=== PATIENT | male | born 1960 | race Caucasian/White ===

== ENCOUNTER 2018-03-20 19:13 | Outpatient (REF) | payer OTHER, SELFPAY ==
[2018-03-20 20:48] LABS: COMMENT (LAB VIEW ONLY) 27.34 mg/dL; Microalb ug/mg Crea 123.6 ug/mg Cr
== END 2018-03-20 19:33 ==
LOC: NCHCN 19:13
PROVIDERS: PCP Family Medicine; Visit Provider Family Medicine
DX: E11.21 Type 2 diabetes mellitus with diabetic nephropathy (principal)
CPT/HCPCS: 82043; 82570

== ENCOUNTER 2018-08-20 07:53 | Outpatient (REF) | payer OTHER, SELFPAY ==
[2018-08-20 13:22] LABS: HCT 41.1 % (40.0-50.0); Mean Corp. HGB Concentration 34.1 g/dL (32.0-36.0); Mean Corpuscular Hemoglobin 37.9 pg (27.0-33.0); Mean Corpuscular Volume 111.4 fL (80-95); Mean Platelet Volume 9.7 fL (8.0-11.0); Platelet Count 245 x1000/uL (130-400); RBC 3.69 m/cumm (4.50-6.00); RBC Distribution Width 11.8 % (11.8-14.1)
[2018-08-20 13:41] LABS: Anion Gap 12.9 mmol/L (3-11); BUN 17 mg/dL (7-18); CO2 24.1 mmol/L (21.0-32.0); CREATININE 0.82 mg/dL (0.70-1.30); Calcium 9.1 mg/dL (8.5-10.1); Chloride 100 mmol/L (98-107); Glucose 179 mg/dL (70-100); Potassium 4.6 mmol/L (3.5-5.1); Sodium 137 mmol/L (136-145)
== END 2018-08-20 08:13 ==
LOC: NCHCN 07:53
PROVIDERS: PCP Family Medicine; Visit Provider Family Medicine
DX: I10 Essential (primary) hypertension (principal); D53.9 Nutritional anemia, unspecified
CPT/HCPCS: 80048; 85027

== ENCOUNTER 2018-10-29 18:24 | Outpatient (REF) | payer OTHER, SELFPAY ==
--- NOTE | 2018-10-29 11:15 | SKI_PTH ---
PATIENT: Clive Zuleta LOC: [facility] U#:[id number] AGE/SX: 58/M ROOM: RE10/29/[address]: [place] : 1960 BED: DIS: 10/29/2018 SPEC #: [id number] RECD: 10/29/18 18:29 STATUS: DEION APPLE #: [id number] ABDON: 10/29/18 11:[address]: Timbo eBach DEPT: Surgical Specimen RECD BY: Ashley Theodore Tissues: 1 - SKIN BIOPSY(SHAVE/PUNCH) Procedures: SKIN LEVEL 4 Comments: [id number]
== END 2018-10-29 18:44 ==
LOC: NCHCN 18:24
PROVIDERS: PCP Family Medicine; Visit Provider Family Medicine
DX: C44.321 Squamous cell carcinoma of skin of nose (principal)
CPT/HCPCS: 88305

== ENCOUNTER 2018-11-19 12:28 | Outpatient (REF) | payer OTHER, SELFPAY ==
[2018-11-19 13:28] LABS: HCT 45.3 % (40.0-50.0); HGB 15.6 g/dL (13.5-17.5); Mean Corp. HGB Concentration 34.4 g/dL (32.0-36.0); Mean Corpuscular Hemoglobin 37.4 pg (27.0-33.0); Mean Corpuscular Volume 108.6 fL (80-95); Mean Platelet Volume 9.6 fL (8.0-11.0); Platelet Count 242 x1000/uL (130-400); RBC 4.17 m/cumm (4.50-6.00); RBC Distribution Width 11.2 % (11.8-14.1); White Blood Cell Count 9.88 k/cumm (4.4-10.8)
[2018-11-19 13:35] LABS: Anion Gap 13.1 mmol/L (3-11); BUN 18 mg/dL (7-18); CO2 23.9 mmol/L (21.0-32.0); CREATININE 0.96 mg/dL (0.70-1.30); Calcium 8.9 mg/dL (8.5-10.1); Chloride 98 mmol/L (98-107); Glucose 280 mg/dL (70-100); Potassium 4.4 mmol/L (3.5-5.1); Sodium 135 mmol/L (136-145)
== END 2018-11-19 12:48 ==
LOC: NCHCN 12:28
PROVIDERS: PCP Family Medicine; Visit Provider Family Medicine
DX: I10 Essential (primary) hypertension (principal); D53.9 Nutritional anemia, unspecified
CPT/HCPCS: 80048; 85027

== ENCOUNTER 2019-01-28 11:01 | Outpatient (REF) | payer OTHER, SELFPAY ==
[2019-01-28 13:36] LABS: BUN 24 mg/dL (7-18); CREATININE 0.96 mg/dL (0.70-1.30); Calcium 9.6 mg/dL (8.5-10.1); Chloride 101 mmol/L (98-107); Glucose 112 mg/dL (70-100); Sodium 137 mmol/L (136-145)
== END 2019-01-28 11:21 ==
LOC: NCHCN 11:01
PROVIDERS: PCP Family Medicine; Visit Provider Family Medicine
DX: I10 Essential (primary) hypertension (principal)
CPT/HCPCS: 80048

== ENCOUNTER 2020-02-04 14:43 | Outpatient (REF) | payer OTHER, SELFPAY ==
[2020-02-04 19:31] LABS: Abs Immature Grans 0.03 10^3/uL (0.0-0.06); Absolute Basophil Count 0.05 10^3/uL (0.0-0.2); Absolute Eosinophil Count 0.09 10^3/uL (0.0-0.7); Absolute Lymphocyte Count 1.83 10^3/uL (1.2-3.4); Absolute Neutrophil Count 5.57 10^3/uL (1.2-6.7); Basophils % 0.6; Eosinophils % 1.1; HCT 38.8 % (40.0-50.0); HGB 13.1 g/dL (13.5-17.5); Immature Grans % 0.4; Lymphocytes % 21.6; MCH 38.9 pg (27.0-33.0); MCHC 33.8 % (32.0-36.0); MCV 115.1 fL (80-95); MPV 9.1 fL (8.0-11.0); Monocytes % 10.6; Neutrophils % 65.7; Nucleated RBC 0 %; Platelet Count 277 10^3/uL (130-400); RBC 3.37 10^6/uL (4.36-5.78); RDW 11.9 % (11.8-14.1); RDW-SD 51.6 fL; WBC 8.47 10^3/uL (4.4-10.8)
[2020-02-04 19:53] LABS: ALT 26 U/L (16-63); AST 27 U/L (15-37); Alkaline Phosphatase 73 U/L (46-116); Anion Gap 12.5 mmol/L (3-11); BUN 28 mg/dL (7-18); Bilirubin, Total 0.3 mg/dL (0.2-1.0); C-Reactive Protein 0.52 mg/dL (0.0-0.3); CO2 22.5 mmol/L (21.0-32.0); CREATININE 0.98 mg/dL (0.70-1.30); Calcium 9.5 mg/dL (8.5-10.1); Chloride 100 mmol/L (98-107); Glucose 99 mg/dL (74-106); Potassium 4.6 mmol/L (3.5-5.1); Sodium 135 mmol/L (136-145); Total Protein 7.4 g/dL (6.4-8.2)
[2020-02-04 19:54] LABS: Macrocytosis 1+; Polychromasia Present
== END 2020-02-04 15:03 ==
LOC: NCHCN 14:43
PROVIDERS: PCP Family Medicine; Visit Provider Family Medicine
DX: M79.672 Pain in left foot (principal)
CPT/HCPCS: 80053; 85025; 86140

== ENCOUNTER 2021-01-19 17:06 | Outpatient (REF) | payer BC, SELFPAY ==
[2021-01-19 20:04] LABS: ALT 24 U/L (16-63); AST 20 U/L (15-37); Albumin 3.7 g/dL (3.4-5.0); Alkaline Phosphatase 88 U/L (46-116); Anion Gap 10.3 mmol/L (3-11); BUN 26 mg/dL (7-18); Bilirubin, Total 0.2 mg/dL (0.2-1.0); CO2 24.7 mmol/L (21.0-32.0); CREATININE 1.1 mg/dL (0.70-1.30); Chloride 104 mmol/L (98-107); Glucose 97 mg/dL (74-106); Potassium 4.3 mmol/L (3.5-5.1); Sodium 139 mmol/L (136-145); Total Protein 6.9 g/dL (6.4-8.2)
[2021-01-21 10:52] LABS: HIV-1/2 Ag & Ab Screen Negative (Negative)
[2021-01-21 11:09] LABS: Hepatitis C Ab w Rflx HCV PCR Negative (Negative)
== END 2021-01-19 17:07 | disposition home or self-care (01) ==
LOC: NCHCN 17:06
PROVIDERS: PCP Family Medicine; Visit Provider Family Medicine
DX: Z00.00 Encounter for general adult medical examination without abnormal findings (principal); F10.99 Alcohol use, unspecified with unspecified alcohol-induced disorder
CPT/HCPCS: 80053; 86803; 87389

== ENCOUNTER 2021-12-28 09:35 | Outpatient (REF) | payer BC, SELFPAY ==
[2021-12-28 16:10] LABS: Abs Immature Grans 0.05 10^3/uL (0.0-0.06); Absolute Basophil Count 0.04 10^3/uL (0.0-0.2); Absolute Eosinophil Count 0.06 10^3/uL (0.0-0.7); Absolute Lymphocyte Count 1.72 10^3/uL (1.2-3.4); Absolute Monocyte Count 0.82 10^3/uL (0.1-0.8); Absolute Neutrophil Count 6.51 10^3/uL (1.2-6.7); Basophils % 0.4; Eosinophils % 0.7; HCT 39.6 % (40.0-50.0); HGB 13.5 g/dL (13.5-17.5); Immature Grans % 0.5; Lymphocytes % 18.7; MCH 38.7 pg (27.0-33.0); MCHC 34.1 % (32.0-36.0); MCV 114 fL (80-95); MPV 9.5 fL (8.0-11.0); Monocytes % 8.9; Neutrophils % 70.8; Platelet Count 241 10^3/uL (130-400); RBC 3.49 10^6/uL (4.36-5.78); RDW 11.6 % (11.8-14.1); RDW-SD 48.6 fL
[2021-12-28 16:42] LABS: ESR 32 mm/hr (0-20)
[2021-12-28 16:46] LABS: ALT 24 U/L (16-63); AST 25 U/L (15-37); Albumin 3.6 g/dL (3.4-5.0); Alkaline Phosphatase 101 U/L (46-116); Anion Gap 7.9 mmol/L (3-11); BUN 17 mg/dL (7-18); Bilirubin, Total 0.3 mg/dL (0.2-1.0); CO2 26.1 mmol/L (21.0-32.0); CREATININE 1.1 mg/dL (0.70-1.30); Calcium 9.9 mg/dL (8.5-10.1); Chloride 101 mmol/L (98-107); Estimated GFR 76.85 (mL/min/1.73m2); Glucose 204 mg/dL (74-106); Potassium 4.5 mmol/L (3.5-5.1); Sodium 135 mmol/L (136-145); Total Protein 7.8 g/dL (6.4-8.2); Vitamin B12 600 pg/mL (193-986)
[2021-12-28 16:54] LABS: Folate > 20.0 ng/mL (8.6-20.0)
== END 2021-12-28 09:36 | disposition home or self-care (01) ==
LOC: NCHCN 09:35
PROVIDERS: PCP Family Medicine; Visit Provider Family Medicine
DX: D53.9 Nutritional anemia, unspecified (principal); L97.519 Non-pressure chronic ulcer of other part of right foot with unspecified severity
CPT/HCPCS: 80053; 85652; 82607; 82746; 85025

== ENCOUNTER 2022-05-10 18:59 | Outpatient (REF) | payer BC, SELFPAY ==
[2022-05-10 19:51] LABS: Abs Immature Grans 0.02 10^3/uL (0.0-0.06); Absolute Basophil Count 0.08 10^3/uL (0.0-0.2); Absolute Eosinophil Count 0.19 10^3/uL (0.0-0.7); Absolute Lymphocyte Count 1.98 10^3/uL (1.2-3.4); Absolute Monocyte Count 0.98 10^3/uL (0.1-0.8); Absolute Neutrophil Count 6.84 10^3/uL (1.2-6.7); Basophils % 0.8; Eosinophils % 1.9; HCT 41.1 % (40.0-50.0); HGB 13.6 g/dL (13.5-17.5); Immature Grans % 0.2; Lymphocytes % 19.6; MCH 37.6 pg (27.0-33.0); MCHC 33.1 % (32.0-36.0); MCV 114 fL (80-95); Monocytes % 9.7; Neutrophils % 67.8; Platelet Count 250 10^3/uL (130-400); RBC 3.62 10^6/uL (4.36-5.78); RDW 11.5 % (11.8-14.1); RDW-SD 48.1 fL; WBC 10.09 10^3/uL (4.4-10.8)
[2022-05-10 19:54] LABS: ESR 37 mm/hr (0-20)
[2022-05-10 20:22] LABS: ALT 18 U/L (16-63); AST 20 U/L (15-37); Albumin 3.9 g/dL (3.4-5.0); Alkaline Phosphatase 113 U/L (46-116); Anion Gap 9.2 mmol/L (3-11); BUN 20 mg/dL (7-18); Bilirubin, Total 0.2 mg/dL (0.2-1.0); CO2 25.8 mmol/L (21.0-32.0); CREATININE 1.2 mg/dL (0.70-1.30); Calcium 9.4 mg/dL (8.5-10.1); Chloride 102 mmol/L (98-107); Estimated GFR 69.23 (mL/min/1.73m2); Glucose 100 mg/dL (74-106); Potassium 4.6 mmol/L (3.5-5.1); Sodium 137 mmol/L (136-145); Total Protein 7.5 g/dL (6.4-8.2)
[2022-05-10 21:18] LABS: Hemoglobin A1C 7.2 % (<5.7)
== END 2022-05-10 19:00 | disposition home or self-care (01) ==
LOC: NCHCN 18:59
PROVIDERS: PCP Family Medicine; Visit Provider Family Medicine
DX: E11.621 Type 2 diabetes mellitus with foot ulcer (principal); E11.21 Type 2 diabetes mellitus with diabetic nephropathy; L03.039 Cellulitis of unspecified toe
CPT/HCPCS: 80053; 85652; 83036; 85025; 87070; 87205

== ENCOUNTER 2022-12-12 12:14 | Outpatient (REF) | payer BC, SELFPAY ==
--- NOTE | 2022-12-12 11:52 | SKI_PTH ---
PATIENT: Clive Zuleta LOC: [facility] #:[id number] AGE/SX: 62/M ROOM: RE12/12/[address]: [place]bo [place] : 1960 BED: DIS: 12/12/2022 SPEC #: [id number] RECD: 12/13/22 12:50 STATUS: DEION APPLE #: [id number] ABDON: 12/12/22 11:[address]: [place]bo [place] DEPT: Surgical Specimen RECD BY: Ashley Theodore Tissues: 1 - SKIN BIOPSY(SHAVE/PUNCH) Procedures: SKIN LEVEL 4 Comments: [id number]
== END 2022-12-12 12:15 | disposition home or self-care (01) ==
LOC: NCHCN 12:14
PROVIDERS: PCP Family Medicine; Visit Provider Family Medicine
DX: D04.62 Carcinoma in situ of skin of left upper limb, including shoulder (principal)
CPT/HCPCS: 88305

== ENCOUNTER → 2023-06-07 10:02 | Outpatient (CLI) | payer BC, SELFPAY ==
--- NOTE | 2023-06-07 09:45 | DI.RAD_ITS ---
Exam(s) XR FOOT RT COMPLETE EXAM: XR FOOT RT COMPLETE CLINICAL HISTORY: comparison L97.529 NON PRESSURE ULCER. TECHNIQUE: 2D digital imaging was performed. Three views. COMPARISON: CR XR FOOT LT COMPLETE from 06/07/2023 FINDINGS: BONES: No acute fracture is present. No bony destructive lesion is seen. 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 Hammertoe deformities of the remaining toes. Small heel spur. JOINTS: No dislocation present. SOFT TISSUE: Vascular calcifications. IMPRESSION: No acute abnormality. DATA REPOSITORY: RADIATION DOSE DELIVERED:
--- NOTE | 2023-06-07 09:45 | DI.RAD_ITS ---
Exam(s) XR FOOT LT COMPLETE EXAM: XR FOOT LT COMPLETE CLINICAL HISTORY: eval for osteo left 5th toe prox phalanx L97.529 NON PRESSURE ULCER. TECHNIQUE: 2D digital imaging was performed. Three views. COMPARISON: CR LEFT FOOT COMPLETE from 02/06/2012 FINDINGS: BONES: No acute fracture is present. Resection of the distal phalanx of the little toe since the silvia or exam. There is some lucency in the middle phalanx of the little toe which could represent osteomy elitis. JOINTS: No dislocation present. Mild hallux valgus. Mild degenerative changes at the 1st MTP joint. SOFT TISSUE: Swelling around little toe and dorsum of foot. No foreign body or gas collection. IMPRESSION: Findings suspicious for osteomyelitis of the middle phalanx of the little toe. DATA REPOSITORY: RADIATION DOSE DELIVERED:
== END ==
PROVIDERS: PCP Family Medicine; Visit Provider Podiatrist
DX: M79.672 Pain in left foot; M79.671 Pain in right foot
CPT/HCPCS: 73630

== ENCOUNTER 2023-06-19 17:50 | Outpatient (REF) | payer BC, SELFPAY ==
[2023-06-19 16:03] LABS: CREATININE 1.1 mg/dL (0.70-1.30); Estimated GFR 76.37 (mL/min/1.73m2)
== END 2023-06-19 17:51 | disposition home or self-care (01) ==
LOC: NCHCN 17:50
PROVIDERS: PCP Family Medicine; Visit Provider Family Medicine
DX: I73.9 Peripheral vascular disease, unspecified (principal)
CPT/HCPCS: 82565

== ENCOUNTER 2023-08-06 16:04 | Outpatient (REF) | payer BC, SELFPAY ==
[2023-08-06 10:37] LABS: HCT 36.8 % (40.0-50.0); HGB 12.2 g/dL (13.5-17.5); MCHC 33.2 % (32.0-36.0); MPV 9.4 fL (8.0-11.0); Platelet Count 342 10^3/uL (130-400); RDW 11.9 % (11.8-14.1); RDW-SD 49.3 fL; WBC 11.35 10^3/uL (4.4-10.8)
[2023-08-06 10:38] LABS: MCV 112 fL (80-95)
[2023-08-06 10:46] LABS: ALT 24 U/L (16-63); AST 23 U/L (15-37); Albumin 3.2 g/dL (3.4-5.0); Alkaline Phosphatase 101 U/L (46-116); Anion Gap 16.4 mmol/L (3-11); BUN 11 mg/dL (7-18); Bilirubin, Total 0.3 mg/dL (0.2-1.0); CO2 18.6 mmol/L (21.0-32.0); CREATININE 1.2 mg/dL (0.70-1.30); Calcium 8.3 mg/dL (8.5-10.1); Chloride 101 mmol/L (98-107); Glucose 172 mg/dL (74-106); Potassium 4.7 mmol/L (3.5-5.1); Sodium 136 mmol/L (136-145); Total Protein 7.1 g/dL (6.4-8.2)
== END 2023-08-06 16:05 | disposition home or self-care (01) ==
LOC: LBN 16:04
PROVIDERS: PCP Family Medicine; Visit Provider Family Medicine
DX: Z48.812 Encounter for surgical aftercare following surgery on the circulatory system (principal)
CPT/HCPCS: 80053; 85027

== ENCOUNTER 2023-08-13 11:20 | Outpatient (REF) | payer BC, SELFPAY ==
[2023-08-13 11:49] LABS: Abs Immature Grans 0.05 10^3/uL (0.0-0.06); Absolute Basophil Count 0.06 10^3/uL (0.0-0.2); Absolute Eosinophil Count 0.16 10^3/uL (0.0-0.7); Absolute Lymphocyte Count 2.25 10^3/uL (1.2-3.4); Absolute Monocyte Count 0.65 10^3/uL (0.1-0.8); Absolute Neutrophil Count 5.35 10^3/uL (1.2-6.7); Basophils % 0.7 %; Eosinophils % 1.9 %; HCT 35.7 % (40.0-50.0); HGB 11.8 g/dL (13.5-17.5); Immature Grans % 0.6 %; Lymphocytes % 26.4 %; MCH 37.1 pg (27.0-33.0); MCHC 33.1 % (32.0-36.0); MCV 112 fL (80-95); MPV 9.5 fL (8.0-11.0); Monocytes % 7.6 %; Neutrophils % 62.8 %; Platelet Count 277 10^3/uL (130-400); RBC 3.18 10^6/uL (4.36-5.78); RDW 12.1 % (11.8-14.1); RDW-SD 50.8 fL; WBC 8.52 10^3/uL (4.4-10.8)
[2023-08-13 12:16] LABS: ALT 24 U/L (16-63); AST 26 U/L (15-37); Albumin 3.1 g/dL (3.4-5.0); Alkaline Phosphatase 91 U/L (46-116); Anion Gap 14.7 mmol/L (3-11); BUN 8 mg/dL (7-18); Bilirubin, Total 0.2 mg/dL (0.2-1.0); CO2 22.3 mmol/L (21.0-32.0); CREATININE 0.9 mg/dL (0.70-1.30); Calcium 8.6 mg/dL (8.5-10.1); Chloride 101 mmol/L (98-107); Estimated GFR 96.57 (mL/min/1.73m2); Glucose 75 mg/dL (74-106); Potassium 4.2 mmol/L (3.5-5.1); Sodium 138 mmol/L (136-145); Total Protein 6.6 g/dL (6.4-8.2)
== END 2023-08-13 11:21 | disposition home or self-care (01) ==
LOC: LBN 11:20
PROVIDERS: PCP Family Medicine; Visit Provider Family Medicine
DX: E11.69 Type 2 diabetes mellitus with other specified complication (principal); I70.222 Atherosclerosis of native arteries of extremities with rest pain, left leg; L97.222 Non-pressure chronic ulcer of left calf with fat layer exposed; I73.9 Peripheral vascular disease, unspecified; I10 Essential (primary) hypertension; E78.5 Hyperlipidemia, unspecified
CPT/HCPCS: 80053; 85025

== ENCOUNTER 2023-08-20 15:07 | Outpatient (REF) | payer BC, SELFPAY ==
[2023-08-20 14:33] LABS: Abs Immature Grans 0.03 10^3/uL (0.0-0.06); Absolute Basophil Count 0.04 10^3/uL (0.0-0.2); Absolute Eosinophil Count 0.14 10^3/uL (0.0-0.7); Absolute Monocyte Count 0.67 10^3/uL (0.1-0.8); Absolute Neutrophil Count 5.06 10^3/uL (1.2-6.7); Basophils % 0.5 %; Eosinophils % 1.8 %; HCT 36.4 % (40.0-50.0); Immature Grans % 0.4 %; Lymphocytes % 25.2 %; MPV 9.4 fL (8.0-11.0); Monocytes % 8.4 %; Neutrophils % 63.7 %; Platelet Count 218 10^3/uL (130-400); RBC 3.24 10^6/uL (4.36-5.78); RDW 12.6 % (11.8-14.1); RDW-SD 53.1 fL; WBC 7.94 10^3/uL (4.4-10.8)
[2023-08-20 14:40] LABS: MCV 112 fL (80-95)
[2023-08-20 14:42] LABS: ALT 20 U/L (16-63); AST 17 U/L (15-37); Albumin 2.9 g/dL (3.4-5.0); Alkaline Phosphatase 103 U/L (46-116); Anion Gap 11.8 mmol/L (3-11); BUN 9 mg/dL (7-18); Bilirubin, Total 0.2 mg/dL (0.2-1.0); CO2 24.2 mmol/L (21.0-32.0); CREATININE 0.9 mg/dL (0.70-1.30); Calcium 8.3 mg/dL (8.5-10.1); Chloride 105 mmol/L (98-107); Estimated GFR 96.57 (mL/min/1.73m2); Glucose 135 mg/dL (74-106); Potassium 4.2 mmol/L (3.5-5.1); Sodium 141 mmol/L (136-145); Total Protein 6.5 g/dL (6.4-8.2)
== END 2023-08-20 15:08 | disposition home or self-care (01) ==
LOC: LBN 15:07
PROVIDERS: PCP Family Medicine; Visit Provider Family Medicine
DX: E11.69 Type 2 diabetes mellitus with other specified complication (principal); I73.89 Other specified peripheral vascular diseases
CPT/HCPCS: 80053; 85025